=== PATIENT | male | born 1975 | race Caucasian/White ===

== ENCOUNTER 2025-10-13 15:09 | Emergency (ER) | payer OTHER ==
[~2025-10-13] VITALS: Ht 172.7 cm; Wt 90.7 kg
[2025-10-13] MEDS ORDERED: Acetaminophen/Hydrocodone HP 10/325 PO ONE (15:40)
[2025-10-13 15:56] LABS: BASO # 0.0 10*3/uL (0.0-0.1); BASO % 0.1 % (0.0-1.0); EOS # 0.1 10*3/uL (0.0-0.4); EOS % 0.5 % (1.0-4.0); MEAN CELL VOLUME 90.5 fl (80.0-94.0); MEAN CORPUSCULAR HGB 32.2 pg (27.0-31.0); MEAN PLATELET VOLUME 9.8 fl (9.6-12.3); MONO # 0.7 10*3/uL (0.1-1.0); MONO % 6.3 % (3.0-9.0); NEUT # 8.9 10*3/uL (2.3-7.9); NEUT % 79.9 % (47.0-73.0); NUCLEATED RED BLOOD CELL 0.0 % (0.0-0.0); NUCLEATED RED BLOOD CELL 0.0 10*3/uL (0.0-0.0); PLATELET COUNT AUTOMATED 257 10*3/uL (130-400); RED CELL DISTRI WIDTH 13.7 % (0-14.5)
[2025-10-13 16:16] LABS: BUN 13 mg/dl (9-23)
[2025-10-13] MEDS ORDERED: Doxycycline Hyclate 100 MG 2 TAB ED PACK PO SCH (16:20)
== END 2025-10-13 16:38 | disposition left against medical advice (07) ==
LOC: ED 15:09
PROVIDERS: Nurse Practitioner Family
DX: L08.9 Local infection of the skin and subcutaneous tissue, unspecified (principal); Z53.29 Procedure and treatment not carried out because of patient's decision for other reasons; Z88.1 Allergy status to other antibiotic agents; Z88.8 Allergy status to other drugs, medicaments and biological substances